=== PATIENT | female | born 1965 ===

== ENCOUNTER 2024-06-21 10:36 | Outpatient (CLI) | payer BC, SELFPAY | END 2024-06-21 10:37 | disposition home or self-care (01) | PROVIDERS: Visit Provider Emergency Medicine | DX: Z13.1 Encounter for screening for diabetes mellitus (principal); Z13.6 Encounter for screening for cardiovascular disorders | CPT/HCPCS: 80061; 82947 ==

== ENCOUNTER 2024-08-26 08:56 | Outpatient (CLI) | payer BC, SELFPAY ==
--- NOTE | 2024-08-26 09:15 | CRLHL7_ITS ---
For Patients: As a result of the Century Cures Act, medical imaging exams and procedure reports are released immediately into your electronic medical record. You may view this report before your referring provider. If you have questions, please contact your health care provider. INDICATION: BILATERAL SCREENING MAMMOGRAM, ASYMPTOMATIC 59 Y/O FEMALE COMPARISON: 12/25/2021, 08/27/2020, 06/10/2019 TECHNIQUE: Digital mammogram in CC and MLO projections including computer-aided detection (CAD) and tomosynthesis. BREAST COMPOSITION: There are scattered areas of fibroglandular density. FINDINGS: No suspicious findings. ASSESSMENT: BI-RADS 1 Negative RECOMMENDATION: Annual screening mammogram. A lay language report of this examination will be provided to the patient. Dictated by: Angel Ross MD @ 09/06/2024 10:47:44 (Electronically Signed)
== END 2024-08-26 08:57 | disposition home or self-care (01) ==
LOC: MAMMO 08:57
PROVIDERS: Visit Provider Emergency Medicine
DX: Z12.31 Encounter for screening mammogram for malignant neoplasm of breast (principal)
CPT/HCPCS: 77063; 77067